=== PATIENT | female | born 1960 | race Caucasian/White ===

== ENCOUNTER 2017-03-21 01:53 | Emergency (ER) | payer SELFPAY ==
[~2017-03-21] VITALS: Ht 165.1 cm; Wt 100.0 kg
[~2017-03-21 01:53] MED LIST: AMOXICILLIN 50500 MG PO; AMOXICILLIN/CLA1 TA1 PO; ASPIRIN E.C. 8181 MG; BLOOD PRESSURE MED; CIPRO 500MG TA500 MG PO; CIPRO HC OTIC S10 ML OT; CORTISPORIN OTI10 M2 OT; DIFLUCAN150 MG PO; DILAUDID 2MG TAB2 MG PO; GLUCOPHAGE500 MG/TAB PO; IBU800 M1 PO; INSLANT SQ; LANTUS SOLOS100 U/ML; LEVAQUIN 750MG750 M1 PO; LEVEMIR100 U/ML SC; LOPRESSOR 225 MG/TAB PO; LORTAB 5/500 501 TAB PO; MINOCYCLIN100 MG/CAP PO; NAPROSYN500 MG PO; NEURONTIN300 MG/CAP PO; NITROSTAT0.4 MG/TAB SL; NO HOME MEDICATIONS; NORCO 325 MG-101 TAB PO; NORCO 325 MG-51 TAB PO; NOVLOG SQ; NOVOLIN R100 U/ML SQ; NOVOLOG 100U100 U/M1 SQ; NOVOLOG FLEX100 U/ML SC; NYSTATIN OR100 MU/ML PO; NYSTATIN100000 U/G TOP; OXYGEN; PAXIL 20MG20 MG PO; PERCOCET 325 MG1 TA2 PO; PERCOCET 5/321 UDTAB PO; PHENERGAN 25 TA25 MG PO; PREDNISONE20 MG PO; PRILOSEC 20MG20 MG PO; PRINIVIL40 MG PO; PRINZIDE 12.5 M1 TA1 PO; PRINZIDE 12.5 M1 TAB PO; PROVENTIL0.09 MG/A1 IH; ROBITUSSIN A-C S1 M1 PO; RT ADVAIR 228 DISKUS IH; RT ADVAIR HFA 412 GM IH; TOPROL XL 25MG25 MG PO; TRAMADOL50 MG PO; TYLENOL EXTRA500 M1 PO; TYLENOL/CODEINE1 ML PO; ULTRAM 50MG TAB50 MG PO; ZITHROMAX 250M250 MG PO; ZOHYDRO ER10 MG PO
[2017-03-21 01:57] VITALS: TEMP 101.5
[2017-03-21 03:35] LABS: BASO # 0.1 (0.0-0.2); BASO % 0.3 % (0.0-2.0); EOS % 0.2 % (0-4.0); GRAN # 11.2 (1.4-6.5); GRAN % 71.2 % (42.2-75.2); HEMATOCRIT 39.9 % (37.0-47.0); HEMOGLOBIN 13.6 g/dl (12.5-16.0); LYMPH # 3.1 (1.2-3.4); LYMPH % 19.6 % (20.0-51.0); MEAN CELL VOLUME 96 fl (80.0-100.0); MEAN CORPUSCULAR HEMOGLOBIN 33 pg (27.0-31.0); MEAN CORPUSCULAR HGB CONC 34 g/dl (33.0-37.0); MEAN PLATELET VOLUME 10.7 fl (7.4-10.4); MONO # 1.3 (0.1-0.6); MONO % 8.3 % (1.7-9.3); PLATELET COUNT 110 K/mm3 (130-400); RED BLOOD COUNT 4.18 M/mm3 (4.10-5.30); REDCELL DISTRIBUTION WIDTH-CV 12.6 % (11.5-14.5); WHITE BLOOD COUNT 15.7 K/mm3 (4.8-10.8)
[2017-03-21 03:49] LABS: C-REACTIVE PROTEIN 2.7 mg/dL (0.0-0.9); CALCIUM 8.3 mg/dL (8.4-10.2); CREATININE, serum 0.74 mg/dL (0.52-1.25); POTASSIUM 3.3 mmol/L (3.4-5.0)
[2017-03-21 04:08] LABS: ERYTHROCYTE SEDIMENTATION RATE 14 mm/hr (0-30)
[2017-03-21] MEDS ORDERED: ULTRAM 50MG TAB50 MG PO (04:44)
[2017-03-21] MEDS ORDERED: AMOXICILLIN/CLA1 TA1 PO (04:44)
[2017-03-21 04:58] VITALS: BP 133/59; PULSE 71
== END 2017-03-21 04:58 | disposition left against medical advice (07) ==
LOC: COL.ER 01:53
PROVIDERS: Emergency Medicine
DX: S81.852A Open bite, left lower leg, initial encounter (principal); L03.116 Cellulitis of left lower limb; W55.01XA Bitten by cat, initial encounter; Y92.009 Unspecified place in unspecified non-institutional (private) residence as the place of occurrence of the external cause; J44.9 Chronic obstructive pulmonary disease, unspecified; I10 Essential (primary) hypertension; F17.210 Nicotine dependence, cigarettes, uncomplicated; E11.9 Type 2 diabetes mellitus without complications; Z79.4 Long term (current) use of insulin; Z23 Encounter for immunization
CPT/HCPCS: J0697; J1170; J1885; J7030

== ENCOUNTER 2017-07-11 01:15 | Emergency (ER) | payer SELFPAY ==
[~2017-07-11] VITALS: Ht 165.1 cm; Wt 100.5 kg
[2017-07-11 01:19] VITALS: BP 187/82; PULSE 100; TEMP 97.1
[2017-07-11] MEDS ORDERED: BACTRIM 400 MG-1 TAB PO (01:48)
[2017-07-11] MEDS ORDERED: NORCO 325 MG-51 TAB PO (02:06)
== END 2017-07-11 02:18 | disposition home or self-care (01) ==
LOC: COL.ER 01:15
DX: L02.412 Cutaneous abscess of left axilla (principal); B95.62 Methicillin resistant Staphylococcus aureus infection as the cause of diseases classified elsewhere; E11.9 Type 2 diabetes mellitus without complications; I10 Essential (primary) hypertension; J44.9 Chronic obstructive pulmonary disease, unspecified; F17.210 Nicotine dependence, cigarettes, uncomplicated; Z79.82 Long term (current) use of aspirin; Z79.4 Long term (current) use of insulin
CPT/HCPCS: J1170; J2405

== ENCOUNTER 2017-07-24 21:35 | Emergency (ER) | payer SELFPAY ==
[~2017-07-24 21:35] MED LIST changes: +BACTRIM 400 MG-1 TAB PO
[2017-07-24 21:47] VITALS: BP 177/82; TEMP 100.2
[2017-07-24 22:26] LABS: BASO # 0.1 (0.0-0.2); BASO % 1.3 % (0.0-2.0); EOS # 0.2 (0.0-0.7); EOS % 3.9 % (0-4.0); GRAN # 2.7 (1.4-6.5); GRAN % 43.2 % (42.2-75.2); HEMOGLOBIN 15.6 g/dl (12.5-16.0); LYMPH # 2.5 (1.2-3.4); LYMPH % 40.1 % (20.0-51.0); MEAN CELL VOLUME 94 fl (80.0-100.0); MEAN CORPUSCULAR HEMOGLOBIN 33 pg (27.0-31.0); MEAN CORPUSCULAR HGB CONC 35 g/dl (33.0-37.0); MONO # 0.7 (0.1-0.6); MONO % 11.3 % (1.7-9.3); PLATELET COUNT 114 K/mm3 (130-400); RED BLOOD COUNT 4.78 M/mm3 (4.10-5.30); REDCELL DISTRIBUTION WIDTH-CV 13.1 % (11.5-14.5); WHITE BLOOD COUNT 6.1 K/mm3 (4.8-10.8)
[2017-07-24 22:34] LABS: ADJUSTED CALCIUM 9.4 mg/dL (8.4-10.2); ALBUMIN 3.8 gm/dL (3.5-5.0); BILIRUBIN,TOTAL 0.8 mg/dL (0.0-1.0); CALCIUM 9.2 mg/dL (8.4-10.2); CREATININE, serum 0.7 mg/dL (0.52-1.25); TOTAL PROTEIN 7.6 gm/dL (6.4-8.2)
[2017-07-24 23:04] LABS: PH 5 (5-8); SQUAMOUS EPITHELIAL 0-2 /hpf; URINE APPEARANCE Clear; URINE BACTERIA None Seen /hpf; URINE BILIRUBIN Negative (NEGATIVE); URINE BLOOD Negative (NEGATIVE); URINE COLOR Yellow; URINE GLUCOSE 3+ (NEGATIVE); URINE KETONE Negative (NEGATIVE); URINE RBC 0-2 /hpf; URINE WBC 0-2 /hpf
[2017-07-25] MEDS ORDERED: AMOXICILLIN 8751 TAB PO (00:25)
[2017-07-25 00:35] VITALS: PULSE 92
== END 2017-07-25 00:49 | disposition home or self-care (01) ==
LOC: COL.ER 21:35
PROVIDERS: Emergency Medicine
DX: J40 Bronchitis, not specified as acute or chronic (principal); J06.9 Acute upper respiratory infection, unspecified; I10 Essential (primary) hypertension; E11.9 Type 2 diabetes mellitus without complications; B19.20 Unspecified viral hepatitis C without hepatic coma; J44.9 Chronic obstructive pulmonary disease, unspecified; F17.210 Nicotine dependence, cigarettes, uncomplicated; Z79.82 Long term (current) use of aspirin; Z79.4 Long term (current) use of insulin
CPT/HCPCS: J7030

== ENCOUNTER 2017-08-17 20:11 | Emergency (ER) | payer SELFPAY ==
[~2017-08-17] VITALS: Ht 165.1 cm; Wt 100.0 kg
[~2017-08-17 20:11] MED LIST changes: +AMOXICILLIN 8751 TAB PO
[2017-08-17 20:14] VITALS: TEMP 98.5
[2017-08-17] MEDS ORDERED: TYLENOL W/COD1 UDTAB PO (21:00)
[2017-08-17] MEDS ORDERED: BACTRIM DS 8001 TAB PO (21:00)
[2017-08-17 21:43] VITALS: BP 148/89; PULSE 87
== END 2017-08-17 21:48 | disposition home or self-care (01) ==
LOC: COL.ER 20:11
DX: L02.412 Cutaneous abscess of left axilla (principal); L73.2 Hidradenitis suppurativa; R07.9 Chest pain, unspecified; I10 Essential (primary) hypertension; E11.9 Type 2 diabetes mellitus without complications; J44.9 Chronic obstructive pulmonary disease, unspecified; F17.200 Nicotine dependence, unspecified, uncomplicated; Z79.4 Long term (current) use of insulin
CPT/HCPCS: J0690

== ENCOUNTER 2017-08-20 20:15 | Emergency (ER) | payer SELFPAY ==
[~2017-08-20] VITALS: Ht 165.1 cm; Wt 100.0 kg
[~2017-08-20 20:15] MED LIST changes: +BACTRIM DS 8001 TAB PO; +TYLENOL W/COD1 UDTAB PO
[2017-08-20 20:19] VITALS: TEMP 98.8
[2017-08-20] MEDS ORDERED: NORCO 325 MG-51 TAB PO (22:22)
[2017-08-20 22:27] VITALS: BP 189/89; PULSE 82
== END 2017-08-20 22:34 | disposition home or self-care (01) ==
LOC: COL.ER 20:15
DX: L02.411 Cutaneous abscess of right axilla (principal); J44.9 Chronic obstructive pulmonary disease, unspecified; E11.9 Type 2 diabetes mellitus without complications; I10 Essential (primary) hypertension; F17.210 Nicotine dependence, cigarettes, uncomplicated; Z79.4 Long term (current) use of insulin; Z79.82 Long term (current) use of aspirin
CPT/HCPCS: J2270